=== PATIENT | female | born 1985 | race Two or more races ===

== ENCOUNTER 2018-06-03 10:02 | Day surgery (SDC) | payer OTHER ==
[~2018-06-03] VITALS: Ht 172.7 cm; Wt 96.2 kg
[~2018-06-03 10:02] MED LIST: ALBU90OI; ALBU90OI6 INH; BUDE200IP; CITA20 PO; FAMO20 PO; HYDACE5 PO; MONT10T; PROM25 PO; QVAR7.3 G1 IH; RXSULTRIDS PO; SULTRIDS PO; TRAM50 PO; Ultram50 MG PO; [UNRECOGNIZED DRUG - OTHER]
[2018-06-03] MEDS ORDERED: PROM25S (10:29)
--- NOTE | 2018-06-03 13:17 | NUR ---
06/03/18 1317 Mili Piedra PT IS ACCOMPANIED BY HER MOM AT THIS TIME. VSS. PT STATES PAIN IS 7/10. PT DENIES NAUSEA. PT TOLERATING PO FLUIDS AND SNACKS WELL. CALL LIGHT IN REACH.
== END 2018-06-03 14:14 | disposition home or self-care (01) ==
LOC: ORSCSDS 10:02
PROVIDERS: Podiatrist Foot & Ankle Surgery
PROC: 0SGF44Z Fusion of Right Ankle Joint with Internal Fixation Device, Percutaneous Endoscopic Approach (ICD-10-PCS; principal; 2018-06-03 11:15)
DX: M25.371 Other instability, right ankle (principal); S93.491A Sprain of other ligament of right ankle, initial encounter; J45.909 Unspecified asthma, uncomplicated; Z79.899 Other long term (current) drug therapy
CPT/HCPCS: C1713; J0171; J0690; J1100; J1885; J2250; J2405; J3010; J7120

== ENCOUNTER → 2021-05-28 | Outpatient (CLI) | payer OTHER ==
[~2021-05-28] MED LIST changes: +ACET500 PO; +ALBU2.5V5 INH; +CYCL10 PO; +IBUP600 PO; +PROM25S; +Prinivil10 MG PO; +TIZA4 PO; +TULANA0.35 MG PO
[2021-05-28 15:23] LABS: CHOL/HDL RATIO 3.1; Cholesterol 154 mg/dL (50-200); HDL Cholesterol 50 mg/dL (>39); LDL/HDL RATIO 1.6; Low Density Lipoprotein Chol 81 mg/dL (0-110); Thyroid Stimulating Hormone 0.986 uIU/mL (0.360-4.800); Triglycerides 116 mg/dL (30-140); Very Low Density Lipoprot Chol 23 mg/dL (6-28)
[2021-05-28 15:25] LABS: Alanine Aminotransfer (ALT/SGP 32 U/L (12-78); Albumin, Blood 4.1 g/dL (3.4-5.0); Albumin/Globulin Ratio 1.4 (0.8-1.8); Alk Phos 63 U/L (50-136); Anion Gap 6 mmol/L (6-16); Aspartate Aminotrans (AST/SGOT 23 U/L (12-37); Bilirubin, Total 0.7 mg/dL (0.1-1.0); Blood Urea Nitrogen 15 mg/dL (8-24); CO2, Blood 25 mmol/L (21-32); Calcium, Blood 8.3 mg/dL (8.5-10.1); Chloride, Blood 107 mmol/L (98-108); Creatinine, Blood 0.63 mg/dL (0.40-1.00); Glomerular Filtration Rate >60 (60-); Glucose, Blood 91 mg/dL (70-99); Sodium, Blood 138 mmol/L (136-145); Total Protein, Blood 7.1 g/dL (6.4-8.2)
== END | disposition home or self-care (01) ==
LOC: LAB SHORT 14:01
PROVIDERS: Hospitalist
DX: Z01.419 Encounter for gynecological examination (general) (routine) without abnormal findings (principal)
CPT/HCPCS: 80053; 80061; 84443

== ENCOUNTER → 2024-12-27 | Outpatient (CLI) | payer OTHER ==
[2024-12-27 19:37] LABS: Alanine Aminotransfer (ALT/SGP 50.0 U/L (12-78); Albumin, Blood 4.2 g/dL (3.4-5.0); Albumin/Globulin Ratio 1.4 (0.8-1.8); Anion Gap 8.0 mmol/L (3-11); Aspartate Aminotrans (AST/SGOT 38.0 U/L (12-37); Bilirubin, Total 0.6 mg/dL (0.1-1.0); Blood Urea Nitrogen 13.0 mg/dL (8-24); CO2, Blood 25.0 mmol/L (21-32); Calcium, Blood 8.9 mg/dL (8.5-10.1); Chloride, Blood 106.0 mmol/L (98-108); Creatinine, Blood 0.51 mg/dL (0.40-1.00); Globulin, Blood 3.0 g/dL (2.2-4.0); Glucose, Blood 94.0 mg/dL (70-99); Potassium, Blood 3.6 mmol/L (3.5-5.5); Sodium, Blood 135.0 mmol/L (136-145); Total Protein, Blood 7.2 g/dL (6.4-8.2)
== END ==
LOC: LAB SHORT 17:09 → LAB 17:09
PROVIDERS: Hospitalist
DX: I10 Essential (primary) hypertension (principal)
CPT/HCPCS: 80053